=== PATIENT | female | born 1950 | race African-American/Black ===

== ENCOUNTER 2016-12-04 08:18 | Outpatient (CLI) | payer OTHER, MEDICARE ==
--- NOTE | 2016-12-04 11:34 | MMO ---
BILATERAL SCREENING MAMMOGRAM: Date: 12/04/16 INDICATION: Annual exam. COMPARISON: Prior exam dated 10/21/14. FINDINGS: Interpretation of this exam was assisted with computer-aided detection. The breast parenchyma is heterogeneously dense. There are vascular benign-appearing calcifications within the right and left breast. No suspicious m ass, cluster of microcalcification, or area of architectural distortion is evident. IMPRESSION: BIRADS 2: Benign Finding(s) Recommend routine annual mammographic screening. POS: [facility]
== END 2016-12-04 08:19 | disposition home or self-care (01) ==
LOC: SCSMAMMO 08:18
PROVIDERS: ATTEND Family Medicine
DX: Z12.31 Encounter for screening mammogram for malignant neoplasm of breast (principal)
CPT/HCPCS: 77067; G0202

== ENCOUNTER 2017-03-25 12:52 | Outpatient (CLI) | payer OTHER ==
[2017-03-25 14:41] LABS: #Basophils 0.1 thou/uL (0.0-0.2); #Eosinphils 0.2 thou/uL (0.0-0.7); #Lymphocytes 2.6 thou/uL (1.20-3.40); #Monocytes 0.5 thou/uL (0.11-0.59); %Basophils 1.4 % (0.0-1.0); %Eosinophils 2.9 % (0.0-10.0); %Neutrophils 53.7 % (42.0-75.0); Hemoglobin 12.3 g/dL (12.0-16.0); Mean Corpuscular HGB CONC 32.7 g/dL (32.0-36.0); Mean Corpuscular Hemoglobin 29.5 pg (27.0-31.0); Platelet Count 338 thou/uL (130-400); RBC Distribution Width 12.6 % (11.5-14.5); Red Blood Cell (RBC) Count 4.18 mill/uL (4.20-5.40); White Blood Cell (WBC) Count 7.4 thou/uL (4.8-10.8)
[2017-03-25 15:06] LABS: Anion Gap 12 mmol/L (10-20); BUN (Urea Nitrogen) 10 mg/dL (9.8-20.1); Calc. Creatinine Clearance 0 mL/min (70-130); Calcium 9.4 mg/dL (7.8-10.44); Carbon Dioxide 27 mmol/L (23-31); Chloride 103 mmol/L (98-107); Estimated GFR-MDRD 89; Glucose 89 mg/dL (80-115); Potassium 3.5 mmol/L (3.5-5.1); Sodium 138 mmol/L (136-145)
--- NOTE | 2017-05-27 21:07 | EKG ---
Test Reason : Blood Pressure : / mmHG Vent. Rate : 081 BPM Atrial Rate : 081 BPM P-R Int : 154 ms QRS Dur : 082 ms QT Int : 378 ms P-R-T Axes : 028 010 -17 degrees QTc Int : 439 ms Normal sinus rhythm T wave abnormality, consider inferior ischemia Abnormal ECG No previous ECGs available Confirmed by LIZZIE JARAMILLO M.D. ([id number]) on 05/27/2017 9:07:03 PM Referred By: AMOS Confirmed By:LIZZIE JARAMILLO M.D.
== END 2017-03-25 12:53 | disposition home or self-care (01) ==
LOC: LABBT 12:52
PROVIDERS: ATTEND Surgery
DX: Z01.812 Encounter for preprocedural laboratory examination (principal); K64.9 Unspecified hemorrhoids
CPT/HCPCS: 80048; 85025; 93005; 93010

== ENCOUNTER 2017-03-29 08:45 | Day surgery (SDC) | payer OTHER ==
[2017-03-25 13:40] VITALS: BMI 34.3
[~2017-03-29 08:45] MED LIST: CEFAZOLIN/Water 2 GM/20 ML SYRINGE ONE; metroNIDAZOLE 500 MG/100 ML BAG ONE
[2017-03-29] MEDS ORDERED: Bupivacaine 0.25% HCL 30 ML VIAL ONE (10:06)
[2017-03-29] MEDS ORDERED: Lidocaine 2% w/Epinephrine 1:200K 20 ML VIAL ONE (10:06)
[2017-03-29] MEDS ORDERED: Fentanyl 100 MCG/2 ML VIAL ONE ×2 (11:23→12:38)
[2017-03-29] MEDS ORDERED: Midazolam HCl 2 mg/2 ml Vial ONE (11:23)
[2017-03-29] MEDS ORDERED: Lidocaine 2% Jelly 5 ML TUBE ONE (12:28)
[2017-03-29] MEDS ORDERED: PHENYLEPHRINE-NS 100 MCG/ML 10 ML SYRINGE ONE (14:23)
[2017-03-29] MEDS ORDERED: Propofol 200 MG/20 ML VIAL ONE (14:23)
[2017-03-29] MEDS ORDERED: Ondansetron HCl/PF 4 MG/2 ML Vial ONE (14:23)
[2017-03-29] MEDS ORDERED: Lidocaine 1% PF 5 ML VIAL ONE (14:23)
[2017-03-29] MEDS ORDERED: Dexamethasone 20 MG/5 ML VIAL ONE (14:23)
[2017-03-29] MEDS ORDERED: Ketorolac Tromethamine 30 MG/ML VIAL ONE (14:24)
[2017-03-29] MEDS ORDERED: HYDROcodone/Acetaminophen 5/325 mg Tablet ONE ×2 (14:24→15:35)
--- NOTE | 2017-04-01 13:20 | OP ---
DATE OF PROCEDURE: 03/29/2017 PROCEDURE: Open hemorrhoidectomy. PREOPERATIVE DIAGNOSIS: Combined internal and external hemorrhoids. POSTOPERATIVE DIAGNOSIS: Combined internal and external hemorrhoids. HISTORY: Ms. Kohler is a 66-year-old woman with a longstanding symptomatic hemorrhoid, for which s he desires surgical treatment. DESCRIPTION OF PROCEDURE: After informed consent was obtained and appropriate preoperative antibioti cs and enema was administered, the patient was taken to the operating room where she was placed in th e supine position and general anesthesia was administered. She was then placed in lithotomy position , and the perianal area prepped and draped in standard sterile fashion. Local anesthesia was infused circumferentially for field block and four quadrant anoscopy carried out. The patient was found to have a large prolapsing bundle at the right anterior and right posterior location with a large diet consultant al component. She was found to have a moderate sized hemorrhoidal bundle at the left posterior locat ion which was primarily external and a small left anterior bundle which was primarily internal. Deci celsa was made to carry out a 3 column hemorrhoidectomy at the right anterior, right posterior, and le ft posterior locations. The large hemorrhoidal bundle was grasped in the right anterior position and excised using the LigaSure. The apex was sutured with a chromic [id number] suture, following w hich the skin incision was closed with a running locking chromic suture, leaving a small external por tion open to drain. The right posterior and left posterior hemorrhoidal bundles were excised in the same manner, and all three bundles sent to pathology. The wounds were inspected for hemostasis, whic h was excellent. Additional local anesthesia was infused for postoperative pain control and a Gelfoa m and lidocaine jelly plug placed in the anal canal. The patient was extubated and taken to the [facility] very room in good condition. Estimated blood loss was 50 mL. There were no complications. SPECIMENS: Three hemorrhoidal bundles.
== END 2017-03-29 16:30 | disposition home or self-care (01) ==
LOC: SDC 08:45 → EEVIPCON 15:00 → SDC 16:30
PROVIDERS: ATTEND Surgery
PROC: 06BY0ZC Excision of Hemorrhoidal Plexus, Open Approach (ICD-10-PCS; principal; 2017-03-29)
DX: K64.8 Other hemorrhoids (principal); K64.4 Residual hemorrhoidal skin tags; I10 Essential (primary) hypertension; E78.5 Hyperlipidemia, unspecified; R73.03 Prediabetes; J45.909 Unspecified asthma, uncomplicated; M10.9 Gout, unspecified; Z88.8 Allergy status to other drugs, medicaments and biological substances; Z90.710 Acquired absence of both cervix and uterus; Z90.722 Acquired absence of ovaries, bilateral; Z98.890 Other specified postprocedural states
CPT/HCPCS: 88304; J0131; J1100; J1885; J2001; J2250; J2405; J2704; J3010; S0020

== ENCOUNTER 2020-11-10 12:14 | Outpatient (CLI) | payer MEDICARE | END 2020-11-10 12:15 | disposition home or self-care (01) | LOC: BICMAMMO 12:14 | PROVIDERS: ATTEND Family Medicine | DX: Z12.31 Encounter for screening mammogram for malignant neoplasm of breast (principal) | CPT/HCPCS: 77063; 77067 ==

== ENCOUNTER 2023-03-08 14:08 | Outpatient (CLI) | payer MEDICARE | END 2023-03-08 14:09 | disposition home or self-care (01) | LOC: BICMAMMO 14:08 | PROVIDERS: ATTEND Family Medicine | DX: Z12.31 Encounter for screening mammogram for malignant neoplasm of breast (principal) | CPT/HCPCS: 77063; 77067 ==